=== PATIENT | female | born 1970 | race Caucasian/White ===

== ENCOUNTER → 2017-11-07 | Outpatient (CLI) | payer BC ==
[~2017-11-07] MED LIST: ACET-3017 PO; CALC-852 PO; GOLD1CAP PO; MULT-1335 PO
--- NOTE | 2017-11-09 09:53 | RADIOLOGY IMAGING REPORT ---
[place] [facility] [place] NAME: JOSE PEGUERO : [id number] MR: [id number] V: [id number] EXAM DATE: ORDERING PHYSICIAN: JORGE LUIS DIXON TECHNOLOGIST: Do Jarrett PROCEDURE:BILATERAL DIGITAL SCREENING MAMMOGRAM WITH CAD ASSISTED INTERPRETATION AND 3D BREAST TOMOSYNTHESIS. COMPARISON:Prior mammograms dated 11/03/16, 10/15/15, 03/02/15 and 09/10/14. INDICATIONS:SCREENING FINDINGS: Extremely dense heterogeneous fibroglandular tissue is seen throughout the breasts. The parenchymal pattern has remained stable when allowing for difference in mammographic technique and patient positioning. There is no evidence of malignant appearing mass, malignant appearing calcification or other secondary sign of malignancy in either breast. DIAGNOSTIC CATEGORY 2--BENIGN FINDING. RECOMMENDATIONS: ROUTINE MAMMOGRAM AND CLINICAL EVALUATION. IMPRESSION: BI-RADS 2: No significant abnormality seen. Images were reviewed with R2CAD and 3D breast tomosynthesis. Dictated by: Xochitl Thomson M.D. on 11/07/2017 at 15:49 Transcribed by: EDEN on 11/08/2017 at 18:59 Approved by: Xochitl Thomson M.D. on 11/09/2017 at 9:52 [facility]
== END ==
LOC: MAMO 02:28
PROVIDERS: ATTEND Nurse Practitioner Family
DX: Z12.31 Encounter for screening mammogram for malignant neoplasm of breast (principal)
CPT/HCPCS: 77063; 77067

== ENCOUNTER → 2019-05-22 | Outpatient (CLI) | payer BC ==
--- NOTE | 2019-05-23 11:11 | RADIOLOGY IMAGING REPORT ---
FACILITY: [facility] PATIENT NAME: JOSE PEGUERO : [id number] MR: [id number] V: [id number] EXAM DATE: [id number] ORDERING PHYSICIAN: JORGE LUIS DIXON TECHNOLOGIST: Lizett Leyva PROCEDURE: BILATERAL DIGITAL SCREENING MAMMOGRAM WITH CAD ASSISTED INTERPRETATION & 3D TOMOSYNTHESIS REASON FOR STUDY: Screening. FAMILY HISTORY OF BREAST CANCER: Mother, 2 great maternal aunts and a maternal cousin. BREAST PROCEDURES/TREATMENTS: Benign Stereotactic biopsy of the Left breast. COMPARISON: 11/07/17, 11/03/16, 10/15/15, 03/02/15, 09/21/14, 09/10/14, 03/20/13. VIEWS OBTAINED: Bilateral 2D & 3D full field CC & MLO projections. BREAST DENSITY: The breasts are extremely dense which limits the sensivity of mammography. MAMMOGRAM FINDINGS: The parenchymal pattern has remained stable allowing for difference in mammographic technique & patient positioning. IMPRESSION: BIRADS 1: Negative. DIAGNOSTIC CATEGORY 1--NEGATIVE. RECOMMENDATIONS: ROUTINE MAMMOGRAM AND CLINICAL EVALUATION. Dictated by: Xochitl Thomson M.D. on 05/22/2019 at 9:47 Transcribed by: HANK on 05/23/2019 at 10:53 Approved by: Xochitl Thomson M.D. on 05/23/2019 at 11:06 [facility]
== END ==
LOC: MAMO 01:59
PROVIDERS: ATTEND Nurse Practitioner Family
DX: Z12.31 Encounter for screening mammogram for malignant neoplasm of breast (principal)
CPT/HCPCS: 77063; 77067